=== PATIENT | female | born 1945 | race Caucasian/White ===

== ENCOUNTER → 2023-11-06 12:42 | Outpatient (REF) | payer MEDICARE, BC, SELFPAY | LOC: RAD 12:42 | PROVIDERS: ATTENDING PHYSICIAN Family Medicine | DX: R94.31 Abnormal electrocardiogram [ECG] [EKG] (principal); Z82.49 Family history of ischemic heart disease and other diseases of the circulatory system | CPT/HCPCS: 75571 ==

== ENCOUNTER → 2023-11-18 11:23 | Outpatient (REF) | payer MEDICARE, BC, SELFPAY | LOC: DHCBC/DCA 11:23 | PROVIDERS: ATTENDING PHYSICIAN Family Medicine | DX: R94.31 Abnormal electrocardiogram [ECG] [EKG] (principal) | CPT/HCPCS: 78452; 93017; A9500; J2785 ==

== ENCOUNTER → 2024-01-03 12:56 | Outpatient (REF) | payer MEDICARE, BC, SELFPAY | LOC: RCS 12:56 | PROVIDERS: ATTENDING PHYSICIAN Internal Medicine Cardiovascular Disease; FAMILY PHYSICIAN Family Medicine | DX: I10 Essential (primary) hypertension (principal) | CPT/HCPCS: 93306 ==

== ENCOUNTER 2024-03-01 18:28 | Emergency (ER) | payer MEDICARE, BC, SELFPAY ==
[2024-03-01 18:34] VITALS: BP 130/66
--- NOTE | 2024-03-01 18:39 | ED.GENMED ---
History of Present Illness
General
Chief Complaint: Dizziness
Source: patient
Exam Limitations: none
Time Seen by Provider: 03/01/24 18:29
History of Present Illness
History of Present Illness:
This is a 78 year old female that comes in by ambulance with near syncope. States that this happened to her in February 18 as she was leaning on table as everything black but she did not faint. Today she again almost fainted and her took her
BP and it was 88/66 witih a heart rate of 45. Today she was leaning across a counter. States that right after this she had to Poop and she broke out into a cold sweat. States that she felt dizzy. Denies any fever, chills, chest pain, SOB, abd pain,
nausea, vomiting, diarrhea, headache, urinary burning.
Past History
Past History
ED Past Medical History: HTN
ED Past Surgical History: Appendectomy, Bowel resection and Gynecological (Fibroid removal, Tubal)
Social History
Tobacco: Non-smoker
Alcohol: None
Drug: None
Personal:
Living: with family
Review of Systems
Review of Systems
All Other Systems: ROS reviewed and negative except as documented in HPI and ROS
Constitutional: Reports other (Cold sweat); Denies fever or chills
EENT: Reports no symptoms
Respiratory: Reports no symptoms; Denies cough or trouble breathing
Cardiac: Reports no symptoms; Denies chest pain
ABD/GI: Reports no symptoms; Denies abdominal pain, nausea, vomiting or diarrhea
: Reports no symptoms; Denies dysuria, frequency or urgency
Musculoskeletal: Reports no symptoms
Skin: Reports no symptoms
Neurological: Reports dizzy; Denies headache
Psychiatric: Reports no symptoms
Phy Exam
General Physical Exam
General Presentation: no apparent distress
General age: appears stated age
General Skin: warm and dry
General Habitus: elderly
General Mental: alert
General Hydration: dry mucous membranes
ENT Exam
ENT Exam: TM's normal, pharynx normal and neck supple
Eye Exam
Eye Exam: EOMI
Cardiovascular Exam
Cardiovascular Exam: regular rate/rhythm, no edema, no murmur and normal peripheral pulses
Pulmonary Exam
Pulmonary Exam: lungs clear, no respiratory distress, no rales, chest non tender, no crackles, no rhonchi, no wheezing and no cough
Gastrointestinal Exam
Gastrointestinal Exam: normal bowel sounds, non tender, soft, no organomegaly, no pulsatile mass and non distended
Musculoskeletal Exam
Musculoskeletal Exam: full ROM and no edema
Skin Exam
Skin Exam: normal color, warm/dry, no rash and no petechia
Psychiatric Exam
Psychiatric Exam: normal mood/affect
Course
Orders/Labs/Results
Orders:
Orders
03/01/24 18:38
Orthostatic VS- Treatment ONCE
0.9% Sodium Chloride 1000 ml [Nss] 1,000 ml IV BOLUS
03/01/24 18:39
Electrocardiogram (*1) Urgent
Reason for Study: Syncope
EKG- Treatment ONCE
CR Chest - 2 Views Urgent
Comment:
Reason For Exam: Near syncope
03/01/24 19:10
Complete Blood Count/With Diff Urgent
Comprehensive Metabolic Panel Urgent
Troponin I Urgent
Abnormal Lab Results
03/01/24
19:10
RBC 3.48 L 10^6/uL
(4.20-5.40)
Hgb 10.8 L g/dL
(12.0-16.0)
Hct 30.2 L %
(37.0-47.0)
Lymphocytes % 17.8 L %
(20.5-51.1)
Sodium 133 L mmol/L
(135-145)
Potassium 3.3 L mmol/L
(3.5-5.1)
BUN 20 H mg/dl
(7-17)
Total Protein 5.4 L g/dl
(6.3-8.2)
Albumin 3.3 L g/dl
(3.5-5.0)
03/01/24 19:10
03/01/24 19:10
H/H low , Sodium slightly low. Potassium slightly low. Dehydraytion. Total protein low. Albumin low. Troponin <0.012
Vital Signs
Initial and Last Documented VS:
Initial Vital Signs
Temp Pulse Resp BP Pulse Ox
98.7 F 85 16 130/66 98
03/01/24 18:34 03/01/24 18:34 03/01/24 18:34 03/01/24 18:34 03/01/24 18:34
Last Documented Vital Signs
Temp Pulse Resp BP Pulse Ox
98.7 F 80 16 124/63 98
03/01/24 18:34 03/01/24 20:00 03/01/24 20:10 03/01/24 20:00 03/01/24 18:34
MDM/Problems Addressed
Differential Diagnosis Includes:
Near Syncope. Hypotension, Cardiac arrhythmia
MDM/Problems Addressed:
This is a 78 year old female that is brought in by ambulance with c/o near syncope. States that this also happened in January. States that her took her BP and it was low and her Heart rate was only 45.
Will check labs. ECG and get Chest x-ray.
Back into see patient. Reviewed labs, and chest x-ray. Explained that her Hgb is low and the blood work that is used to compare was from 2020. Patient does not know what her Hgb was recently. Encouraged patient to follow up with the family doctor
for further evaluation. Patient also has an appointment with the [facility] on . Explained that her BP medication may just dropping her BP to low. Patient is going to hold her amlodipine for 2 days. Patient to return with any concerns.
Chronic conditions affecting care:
NA
Acute Exacerbation and/or Progression of Chronic Illness:
NA
*Radiology
Radiology exam reviewed: preliminary read by ED provider (Chest- Negative for any cardiopulmonary process. ) and radiology read reviewed (Chest- No acute cardiopulmonary process)
*Pulse Oximetry
Patient hypoxic: no
*[employer] Interpretation
Rate: normal
Heart Rate: 84
Rhythm: sinus
*Critical Care Note
Total Time (30-74mins, 75-104mins- exclusive of procedures): Not Applicable
ED Attending Note
-
Portions of this chart may have been created with voice recognition software.� Occasional wrong word or��sound alike� substitutions may have occurred due to the inherent limitations of voice recognition software.
Discharge Plan
Departure
Patient Disposition: Home (Routine Discharge)
Date of Disposition: 03/01/24
Time of Disposition: 20:53
Patient with high blood pressure during this ER visit?: No
Condition: Good
Covid-19: Not Applicable
Discharge Problem:
Acute hypotension, Dizziness
Instructions: Dizziness
Referrals:
Marissa Eddy DO [Family Provider] - Follow up in 2-3 days
Activity Restrictions/Additional Instructions:
As discussed, your blood work shows that your Hgb is low. Please follow up with the family doctor for further testing for anemia. Your Potassium is slightly low. Please try eating some green leafy vegetables and a banana daily. Your blood work also
shows that you were a little Dehydrated. You have been given IV fluids here. Please follow up with the [facility] on as scheduled as she may need to decrease your BP medication's. IF YOU HAVE ANY FURTHER DIZZINESS, OR YOU HAVE ANY OTHER
CONCERNS PLEASE RETURN TO THE EMERGENCY ROOM.
Interventions
Interventions:
*Risk Screen - Suicide Last Done: 03/01/24 18:34
*General Assessment Last Done: 03/01/24 18:34
*Neglect/Abuse Screening Last Done: 03/01/24 18:34
*ED COVID-19 Vaccine History Last Done: 03/01/24 18:34
ED- Neurological Assessment Last Done: 03/01/24 18:34
ED- Cardiac Assessment Last Done: 03/01/24 18:34
ED Swallowing Screen Last Done: 03/01/24 18:34
Discharge Date and Time
Print Language: TURKISH
[2024-03-01] MEDS: NSS 1000 IV (18:59)
[2024-03-01 19:16] LABS: % Basophils 0.8 % (0-2); % Eosinophils 0.7 % (0-6); % Immature Granulocytes 0.3 % (0-0.5); % Lymphocytes 17.8 % (20.5-51.1); % Monocytes 6.7 % (1.7-9.3); % Neutrophils 73.7 % (42.2-75.2); Absolute Basophils 0.1 10^3/uL (0-0.2); Absolute Eosinophils 0.1 10^3/uL (0-0.7); Absolute Lymphocytes 1.6 10^3/uL (1.2-3.4); Absolute Monocytes 0.6 10^3/uL (0.1-0.6); Absolute Neutrophils 6.5 10^3/uL (1.4-6.5); Hematocrit 30.2 % (37.0-47.0); Hemoglobin 10.8 g/dL (12.0-16.0); Mean Corp Hgb Conc. 35.8 g/dL (33.0-37.0); Mean Corpuscular Volume 86.8 fL (81.0-99.0); Mean Platelet Volume 10.3 fL (7.4-10.4); Nucleated Red Blood Cells % 0 %; Platelet Count 233 10^3/uL (130-400); Red Blood Cell Count 3.48 10^6/uL (4.20-5.40); White Blood Cell Count 8.8 10^3/uL (4.8-10.8)
[2024-03-01 19:21] VITALS: BP 121/64; BP 127/64; BP 129/66; PULSE 79; PULSE 82; PULSE 85
[2024-03-01 19:38] LABS: ALT (SGPT) 14 U/L (0-35); AST (SGOT) 23 U/L (14-36); Albumin 3.3 g/dl (3.5-5.0); Alkaline Phosphatase 61 U/L (38-126); Blood Urea Nitrogen 20 mg/dl (7-17); Calcium 8.6 mg/dl (8.4-10.2); Carbon Dioxide 22 mmol/L (22-30); Chloride 103 mmol/L (98-107); Glucose 98 mg/dl (70-99); Potassium 3.3 mmol/L (3.5-5.1); Sodium 133 mmol/L (135-145); Total Bilirubin 0.2 mg/dl (0.2-1.3); Total Protein 5.4 g/dl (6.3-8.2); eGFR > 60.00
[2024-03-01 19:49] LABS: Troponin I < 0.012 ng/ml
[2024-03-01 20:00] VITALS: BP 124/63
== END 2024-03-01 21:23 | disposition home or self-care (01) ==
LOC: EMR 18:28
PROVIDERS: Clinical Nurse Specialist Family Health; EMERGENCY PHYSICIAN Emergency Medicine; FAMILY PHYSICIAN Family Medicine
DX: I95.9 Hypotension, unspecified (principal); R42 Dizziness and giddiness; I10 Essential (primary) hypertension; Z90.49 Acquired absence of other specified parts of digestive tract
CPT/HCPCS: 99283; 96360; 71046; 80053; 84484; 85025; 93005

== ENCOUNTER → 2024-06-16 12:02 | Outpatient (REF) | payer MEDICARE, BC, SELFPAY | LOC: WDC 12:02 | PROVIDERS: ATTENDING PHYSICIAN Family Medicine | DX: Z12.31 Encounter for screening mammogram for malignant neoplasm of breast (principal) | CPT/HCPCS: 77063; 77067 ==

== ENCOUNTER → 2024-08-19 10:44 | Outpatient (REF) | payer MEDICARE, BC, SELFPAY | LOC: RAD 10:44 | PROVIDERS: ATTENDING PHYSICIAN Family Medicine | DX: R93.5 Abnormal findings on diagnostic imaging of other abdominal regions, including retroperitoneum (principal); K86.89 Other specified diseases of pancreas | CPT/HCPCS: 74177; Q9967 ==

== ENCOUNTER → 2025-03-19 14:22 | Outpatient (REF) | payer MEDICARE, BC, SELFPAY | LOC: MRI 3T 14:22 | PROVIDERS: ATTENDING PHYSICIAN Student in an Organized Health Care Education/Training Program; FAMILY PHYSICIAN Family Medicine | DX: K86.89 Other specified diseases of pancreas (principal) | CPT/HCPCS: 74183; A9575 ==

== ENCOUNTER → 2025-06-05 13:40 | Outpatient (REF) | payer MEDICARE, BC, SELFPAY | LOC: PAVMRI 13:40 | PROVIDERS: ATTENDING PHYSICIAN Family Medicine | DX: M48.04 Spinal stenosis, thoracic region (principal); M54.9 Dorsalgia, unspecified; V89.2XXD Person injured in unspecified motor-vehicle accident, traffic, subsequent encounter | CPT/HCPCS: 72146 ==